=== PATIENT | female | born 1930 | race Caucasian/White ===

== ENCOUNTER 2018-03-24 06:39 | Emergency (ER) | payer MEDICARE, BC ==
[~2018-03-24] VITALS: Ht 160 cm; Wt 65.9 kg
[2018-03-24 06:41] VITALS: TEMP 98.3
[2018-03-24] MEDS ORDERED: DESYREL DIVIDO150 M1 PO (06:55)
[2018-03-24] MEDS ORDERED: PEPCID 20MG TAB20 MG PO (06:55)
[2018-03-24] MEDS ORDERED: RISPERDAL 1M1 MG/TAB PO (06:55)
[2018-03-24 08:46] LABS: BASO % 0.2 % (0.0-2.0); EOS % 0.2 % (0-4.0); GRAN # 8.6 (1.4-6.5); GRAN % 75.2 % (42.2-75.2); HEMATOCRIT 44.7 % (37.0-47.0); HEMOGLOBIN 14.9 g/dl (12.5-16.0); LYMPH # 1.7 (1.2-3.4); LYMPH % 14.8 % (20.0-51.0); MEAN CELL VOLUME 94 fl (80.0-100.0); MEAN CORPUSCULAR HEMOGLOBIN 31 pg (27.0-31.0); MEAN CORPUSCULAR HGB CONC 33 g/dl (33.0-37.0); MEAN PLATELET VOLUME 10.7 fl (7.4-10.4); MONO # 1.1 (0.1-0.6); MONO % 9.3 % (1.7-9.3); PLATELET COUNT 208 K/mm3 (130-400); RED BLOOD COUNT 4.77 M/mm3 (4.10-5.30); REDCELL DISTRIBUTION WIDTH-CV 13.2 % (11.5-14.5)
[2018-03-24 08:57] LABS: ALBUMIN 3.5 gm/dL (3.5-5.0); BILIRUBIN,TOTAL 1.3 mg/dL (0.0-1.0); CALCIUM 8.9 mg/dL (8.4-10.2); CREATININE, serum 0.57 mg/dL (0.52-1.25); POTASSIUM 4.1 mmol/L (3.4-5.0); TOTAL PROTEIN 7.4 gm/dL (6.4-8.2)
[2018-03-24 09:03] LABS: COLLECTION METHOD CATHETER
[2018-03-24 09:10] LABS: MUCOUS Present /lpf; PH 7 (5-8); SQUAMOUS EPITHELIAL 0-2 /hpf; URINE APPEARANCE Cloudy; URINE BACTERIA None Seen /hpf; URINE BILIRUBIN Negative (NEGATIVE); URINE BLOOD 1+ (NEGATIVE); URINE COLOR Yellow; URINE GLUCOSE Negative (NEGATIVE); URINE KETONE Negative (NEGATIVE); URINE LEUKOCYTE ESTERASE Trace (NEGATIVE); URINE NITRATE Positive (NEGATIVE); URINE PROTEIN(semi-quant) 1+ (NEGATIVE)
[2018-03-24] MEDS ORDERED: MACROBID 1100 MG/CAP PO (09:16)
[2018-03-24] MEDS ORDERED: OMNICEF 300MG300 MG PO (09:26)
[2018-03-24 11:00] VITALS: BP 137/79; PULSE 88
== END 2018-03-24 11:01 | disposition home or self-care (01) ==
LOC: COL.ER 06:39
PROVIDERS: Physician Assistant
DX: S01.312A Laceration without foreign body of left ear, initial encounter (principal); N39.0 Urinary tract infection, site not specified; Z88.1 Allergy status to other antibiotic agents; W01.0XXA Fall on same level from slipping, tripping and stumbling without subsequent striking against object, initial encounter; Y92.122 Bedroom in nursing home as the place of occurrence of the external cause